=== PATIENT | female | born 1950 | race Caucasian/White ===

== ENCOUNTER 2017-12-09 12:50 | Emergency (ER) | payer MEDICARE ==
--- NOTE | 2017-12-09 13:31 | EDM.PDOC ---
ED HPI GENERAL MEDICAL PROBLEM - General Chief Complaint: Respiratory Problem Stated Complaint: CHEST PAIN Time Seen by Provider: 12/09/17 13:28 Source of Information: Reports: Patient History Limitations: Reports: No Limitations - History of Present Illness INITIAL COMMENTS - FREE TEXT/NARRATIVE: HISTORY AND PHYSICAL: History of present illness: Patient is a 66-year-old female with past medical history of asthma here for cough x 1 week. She states she has a lot of nasal and chest congestion. She is feeling short of breath and has pain in her mid-chest/sternum that is worse with coughing and tender to touch. She has been using her nebulizer which does help. She denies any fevers, chills, nausea, vomiting. Review of systems: As per history of present illness and below otherwise all systems reviewed and negative. Past medical history: As per history of present illness and as reviewed below otherwise noncontributory. Surgical history: As per history of present illness and as reviewed below otherwise noncontributory. Social history: No reported history of drug or alcohol abuse. Family history: As per history of present illness and as reviewed below otherwise noncontributory. Physical exam: General: patient sitting comfortably in no acute distress. HEENT: Atraumatic, normocephalic, pupils reactive, negative for conjunctival pallor or scleral icterus, mucous membranes moist, throat clear, neck supple, nontender, trachea midline. Lungs: Lung sounds are minimally dimished but no rhonchi or rales, breath sounds equal bilaterally, sternum is tender to palpation. Heart: S1S2, regular, negative for clicks, rubs, or JVD. Abdomen: Soft, nondistended, nontender. Negative for masses or hepatosplenomegaly. Negative for costovertebral tenderness. Pelvis: Stable nontender. Genitourinary: Deferred. Rectal: Deferred. Extremities: Atraumatic, negative for cords or calf pain. Neurovascular unremarkable. Neuro: Awake, alert, oriented. Cranial nerves II through XII unremarkable. Cerebellum unremarkable. Motor and sensory unremarkable throughout. Exam nonfocal. Notes: Patient reports improvement after DuoNeb and breath sounds improved. Diagnostics: CBC, CMP, Troponin Chest x-ray Therapeutics: DuoNeb Impression: Asthma exacerbation Acute bronchitis Acute sinusitis Plan: 1. Continue using inhaler/duoneb as needed. Take antibiotic and medrol dosepak as prescribed 2. Follow up with primary care provider 3. Return to ED as needed as discussed Definitive disposition and diagnosis as appropriate pending reevaluation and review of above. Chest Pain Score (Numeric/FACES): 7 - Related Data Allergies Allergy/AdvReac Type Severity Reaction Status Date / Time Penicillins Allergy Hives Verified 12/09/17 12:57 Home Meds: Home Meds Albuterol Sulfate 1 ampule Q4HR 12/09/17 [History] Albuterol [Ventolin HFA] 1 puff Q4HR 12/09/17 [History] Azithromycin [Zithromax] 250 mg PO DAILY #1 dosepk 12/09/17 [Rx] Diltiazem HCl [Cardizem] 1 tab BID 12/09/17 [History] Furosemide 40 mg DAILY 12/09/17 [History] Metoprolol Tartrate 1 tab BID 12/09/17 [History] Nitroglycerin 1 tab PRN 12/09/17 [History] Potassium Chloride [Klor-Con 10] 1 tab DAILY 12/09/17 [History] Rosuvastatin Calcium 20 mg DAILY 12/09/17 [History] methylPREDNISolone [Medrol] 84 mg PO ASDIRECTED #1 tab.ds.pk 12/09/17 [Rx] Past Medical History HEENT History: Reports: Impaired Vision, Retinal Detachment Cardiovascular History: Reports: High Cholesterol, Hypertension, [place] Respiratory History: Reports: Asthma Genitourinary History: Reports: Chronic Renal Insuffiency, Other (See Below) Other Genitourinary History: bladder repair and prolapsed bladder 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: Psychiatric History: Reports: Depression Endocrine/Metabolic History: Reports: Obesity/BMI 30+ Hematologic History: Reports: Anemia - Infectious Disease History Infectious Disease History: Reports: Chicken Pox - Past Surgical History HEENT Surgical History: Reports: Oral Surgery GI Surgical History: Reports: Cholecystectomy Female Surgical History: Reports: Hysterectomy Social & Family History - Family History Family Medical History: Noncontributory - Tobacco Use Smoking Status *Q: Former Smoker Used Tobacco, but Quit: Yes Month/Year Tobacco Last Used: unk - Caffeine Use Caffeine Use: Reports: Coffee, Tea - Recreational Drug Use Recreational Drug Use: No ED ROS GENERAL - Review of Systems Review Of Systems: ROS reveals no pertinent complaints other than HPI. ED EXAM, GENERAL - Physical Exam Exam: See Below (see dictation) Course - Vital Signs Last Recorded V/S: Last Vital Signs Temp 35.9 C 12/09/17 12:54 Pulse 68 12/09/17 12:54 Resp 22 H 12/09/17 12:54 BP 148/72 H 12/09/17 12:54 Pulse Ox 95 12/09/17 12:54 - Orders/Labs/Meds Orders: Active Orders 24 hr Category Date Time Status RT Aerosol Therapy [RC] ASDIRECTED Care 12/09/17 13:39 Active Chest 2V [CR] Stat Exams 12/09/17 13:13 Taken Labs: Laboratory Tests 12/09/17 12/09/17 Range/Units 13:45 13:45 WBC 8.72 (4.0-11.0) K/uL RBC 4.81 (4.30-5.90) M/uL Hgb 12.2 (12.0-16.0) g/dL Hct 38.9 (36.0-46.0) % MCV 80.9 (80.0-98.0) fL MCH 25.4 L (27.0-32.0) pg MCHC 31.4 (31.0-37.0) g/dL RDW Std Deviation 49.8 (28.0-62.0) fl RDW Coeff of Zuly 17 H (11.0-15.0) % Plt Count 297 (150-400) K/uL MPV 9.50 (7.40-12.00) fL Neut % (Auto) 77.7 (48.0-80.0) % Lymph % (Auto) 14.8 L (16.0-40.0) % Dunn % (Auto) 6.2 (0.0-15.0) % Eos % (Auto) 1.0 (0.0-7.0) % Baso % (Auto) 0.3 (0.0-1.5) % Neut # (Auto) 6.8 H (1.4-5.7) K/uL Lymph # (Auto) 1.3 (0.6-2.4) K/uL Dunn # (Auto) 0.5 (0.0-0.8) K/uL Eos # (Auto) 0.1 (0.0-0.7) K/uL Baso # (Auto) 0.0 (0.0-0.1) K/uL Nucleated RBC % 0.0 /100WBC Nucleated RBCs # 0 K/uL Sodium 144 (136-145) mmol/L Potassium 4.6 (3.5-5.1) mmol/L Chloride 108 H (98-107) mmol/L Carbon Dioxide 27.6 (21.0-32.0) mmol/L BUN 19 H (7.0-18.0) mg/dL Creatinine 1.8 H (0.6-1.0) mg/dL Est Cr Clr Drug Dosing 31.85 mL/min Estimated GFR (MDRD) 28.3 ml/min Glucose 99 (74-106) mg/dL Calcium 9.3 (8.5-10.1) mg/dL Total Bilirubin 0.5 (0.2-1.0) mg/dL AST 15 (15-37) IU/L ALT 22 (14-63) IU/L Alkaline Phosphatase 101 (46-116) U/L Troponin I < 0.050 (0.000-0.056) ng/mL Total Protein 7.3 (6.4-8.2) g/dL Albumin 3.7 (3.4-5.0) g/dL Globulin 3.6 H (2.0-3.5) g/dL Albumin/Globulin Ratio 1.0 L (1.3-2.8) Meds: Medications Discontinued Medications Generic Name Dose Route Start Last Admin Trade Name Freq PRN Reason Stop Dose Admin Albuterol/Ipratropium 3 ml 12/09/17 13:39 12/09/17 14:33 Duoneb 3.0-0.5 Mg/3 Ml NEB 12/09/17 13:40 3 ml ONETIME ONE Administration Departure - Departure Time of Disposition: 14:48 Disposition: Home, Self-Care 01 Condition: Good Clinical Impression: Acute bronchitis, Acute sinusitis - Discharge Information Prescriptions: Azithromycin [Zithromax] 250 mg PO DAILY #1 dosepk methylPREDNISolone [Medrol] 84 mg PO ASDIRECTED #1 tab.ds.pk Forms: ED Department Discharge Additional Instructions: The following information is given to patients seen in the emergency department who are being discharged to home. This information is to outline your options for follow-up care. We provide all patients seen in our emergency department with a follow-up referral. The need for follow-up, as well as the timing and circumstances, are variable depending upon the specifics of your emergency department visit. If you don't have a primary care physician on staff, we will provide you with a referral. We always advise you to contact your personal physician following an emergency department visit to inform them of the circumstance of the visit and for follow-up with them and/or the need for any referrals to a consulting specialist. The emergency department will also refer you to a specialist when appropriate. This referral assures that you have the opportunity for follow-up care with a specialist. All of these measure are taken in an effort to provide you with optimal care, which includes your follow-up. Under all circumstances we always encourage you to contact your private physician who remains a resource for coordinating your care. When calling for follow-up care, please make the office aware that this follow-up is from your recent emergency room visit. If for any reason you are refused follow-up, please contact the [facility] Emergency Department at and asked to speak to the emergency department charge nurse. [facility] Primary Care [address] [place] [address] 1. Continue using inhaler/duoneb as needed. Take antibiotic and medrol dosepak as prescribed 2. Follow up with primary care provider 3. Return to ED as needed as discussed - My Orders Last 24 Hours: My Active Orders 12/09/17 13:13 Chest 2V [CR] Stat 12/09/17 13:39 RT Aerosol Therapy [RC] ASDIRECTED - Assessment/Plan Last 24 Hours: My Active Orders 12/09/17 13:13 Chest 2V [CR] Stat 12/09/17 13:39 RT Aerosol Therapy [RC] ASDIRECTED
[2017-12-09] MEDS ORDERED: Albuterol/Ipratropium 3.0-0.5 MG/3 ML Neb Soln NEB ONE (13:39)
[2017-12-09 14:20] LABS: CHLORIDE,CL 108 mmol/L (98-107); SODIUM,NA 144 mmol/L (136-145)
--- NOTE | 2017-12-10 19:12 | CR ---
EXAM DATE: 12/09/17 PATIENT'S AGE: 66 Patient: MERLINE PADILLA Facility: [place], [place] Site . Site : 1950 Study: XRay Chest [id number] 1:28:14 PM Ordering Physician: Doctor Huffman Final Report: INDICATION: Cough and chest pain. COMPARISON: None. FINDINGS: Degenerative osteophytes are noted in the thoracic spine and there is a slight kyphotic deformity of the thoracic spine. Cardiac and mediastinal silhouettes are normal. The pulmonary vasculature is normal. The lungs are free of infiltrate. There are no pleural effusions. IMPRESSION: No active cardiopulmonary disease. Dictated by Sabrina Damon MD @ Dec 09 2017 1:47PM (Electronic Signature) Report Signed by Proxy. KYLE
== END 2017-12-09 14:58 | disposition home or self-care (01) ==
LOC: MW.ED 12:50
DX: J45.901 Unspecified asthma with (acute) exacerbation (principal); J20.9 Acute bronchitis, unspecified; J01.90 Acute sinusitis, unspecified; Z88.0 Allergy status to penicillin; Z79.899 Other long term (current) drug therapy; Z87.891 Personal history of nicotine dependence
CPT/HCPCS: 36415; 71046; 71046-26; 80053; 84484; 85025; 94640; 99282; 99285-25; J7620-GY

== ENCOUNTER 2018-10-04 12:57 | Emergency (ER) | payer MEDICAID, MEDICARE ==
--- NOTE | 2018-10-04 13:11 | EDM.PDOC ---
ED HPI GENERAL MEDICAL PROBLEM - General Chief Complaint: Respiratory Problem Stated Complaint: SHORTNESS OF BREATH Time Seen by Provider: 10/04/18 13:11 Source of Information: Reports: Patient - History of Present Illness INITIAL COMMENTS - FREE TEXT/NARRATIVE: HISTORY AND PHYSICAL: History of present illness: [Patient presents with shortness of breath sensation although she is able to speak in full sentences, she is unchanged from her baseline, she is under the care of Dr. Baxter and . 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 We did do a full workup which has returned essentially all normal ambulatory O2 sats remained 94% Patient has no fever nausea vomiting chills sweats no chest pain headache dizziness palpitation no bowel or urine symptoms no diaphoresis No distress whatsoever ] Review of systems: As per history of present illness and below otherwise all systems reviewed and negative. Past medical history: As per history of present illness and as reviewed below otherwise noncontributory. Surgical history: As per history of present illness and as reviewed below otherwise noncontributory. Social history: No reported history of drug or alcohol abuse. Family history: As per history of present illness and as reviewed below otherwise noncontributory. Physical exam: HEENT: Atraumatic, normocephalic, pupils reactive, negative for conjunctival pallor or scleral icterus, mucous membranes moist, throat clear, neck supple, nontender, trachea midline. Lungs: Clear to auscultation, breath sounds equal bilaterally, chest nontender. Heart: S1S2, regular, negative for clicks, rubs, or JVD. Abdomen: Soft, nondistended, nontender. Negative for masses or hepatosplenomegaly. Negative for costovertebral tenderness. Pelvis: Stable nontender. Genitourinary: Deferred. Rectal: Deferred. Extremities: Atraumatic, negative for cords or calf pain. Neurovascular unremarkable. Neuro: Awake, alert, oriented. Cranial nerves II through XII unremarkable. Cerebellum unremarkable. Motor and sensory unremarkable throughout. Exam nonfocal. Diagnostics: [CBC CMP UA troponin d-dimer INR Chest 1 view EKG ] Therapeutics: [Continue current medications Follow-up for PFTs] Impression: [ short of breath ] Chronic history of baseline Medical screening exam Definitive disposition and diagnosis as appropriate pending reevaluation and review of above. - Related Data Allergies Allergy/AdvReac Type Severity Reaction Status Date / Time Penicillins Allergy Hives Verified 10/04/18 13:02 Home Meds: Home Meds Albuterol Sulfate 1 ampule Q4HR 12/09/17 [History] Albuterol [Ventolin HFA] 1 puff Q4HR 12/09/17 [History] Diltiazem HCl [Cardizem] 1 tab BID 12/09/17 [History] Doxycycline Hyclate 100 mg PO BID 7 Days #14 capsule 12/09/17 [Rx] Furosemide 40 mg DAILY 12/09/17 [History] Metoprolol Tartrate 1 tab BID 12/09/17 [History] Nitroglycerin 1 tab SL ASDIRECTED PRN 12/09/17 [History] Potassium Chloride [Klor-Con 10] 1 tab DAILY 12/09/17 [History] Rosuvastatin Calcium 20 mg DAILY 12/09/17 [History] methylPREDNISolone [Medrol] 84 mg PO ASDIRECTED #1 tab.ds.pk 12/09/17 [Rx] Doxycycline [Vibramycin] 100 mg PO BID 7 Days #14 cap 02/01/18 [Rx] Meclizine [Antivert] 25 mg PO Q6H PRN #15 tab 02/01/18 [Rx] Triamcinolone Acetonide [24 Hour Nasal Allergy] 16.9 ml NS BID #1 bottle [Rx] Past Medical History - Past Health History Medical/Surgical History: Denies Medical/Surgical History HEENT History: Reports: Impaired Vision, Retinal Detachment Cardiovascular History: Reports: High Cholesterol, Hypertension, [place] Respiratory History: Reports: Asthma Genitourinary History: Reports: Chronic Renal Insuffiency, Other (See Below) Other Genitourinary History: bladder repair and prolapsed bladder. Ovarian cyst. 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: Psychiatric History: Reports: Depression Endocrine/Metabolic History: Reports: Obesity/BMI 30+ Hematologic History: Reports: Anemia - Infectious Disease History Infectious Disease History: Reports: Chicken Pox - Past Surgical History HEENT Surgical History: Reports: Oral Surgery GI Surgical History: Reports: Cholecystectomy Female Surgical History: Reports: Hysterectomy Social & Family History - Family History Family Medical History: Noncontributory - Caffeine Use Caffeine Use: Reports: Coffee ED ROS GENERAL - Review of Systems Review Of Systems: See Below ED EXAM, GENERAL - Physical Exam Exam: See Below Course - Vital Signs Last Recorded V/S: Last Vital Signs Temp 96.7 F 10/04/18 13:05 Pulse 61 10/04/18 13:05 Resp 18 10/04/18 13:05 BP 132/81 10/04/18 13:05 Pulse Ox 98 10/04/18 13:05 - Orders/Labs/Meds Orders: Active Orders 24 hr Category Date Time Status EKG Documentation Completion [RC] STAT Care 10/04/18 13:10 Active RT Aerosol Therapy [RC] ASDIRECTED Care 10/04/18 13:28 Active Labs: Laboratory Tests 10/04/18 10/04/18 10/04/18 Range/Units 13:20 13:20 13:20 WBC 15.65 H (4.0-11.0) K/uL RBC 4.84 (4.30-5.90) M/uL Hgb 12.4 (12.0-16.0) g/dL Hct 41.3 (36.0-46.0) % MCV 85.3 (80.0-98.0) fL MCH 25.6 L (27.0-32.0) pg MCHC 30.0 L (31.0-37.0) g/dL RDW Std Deviation 51.4 (28.0-62.0) fl RDW Coeff of Zuly 17 H (11.0-15.0) % Plt Count 321 (150-400) K/uL MPV 9.30 (7.40-12.00) fL Neut % (Auto) 88.7 H (48.0-80.0) % Lymph % (Auto) 7.3 L (16.0-40.0) % Owen % (Auto) 2.9 (0.0-15.0) % Eos % (Auto) 1.0 (0.0-7.0) % Baso % (Auto) 0.1 (0.0-1.5) % Neut # (Auto) 13.9 H (1.4-5.7) K/uL Lymph # (Auto) 1.2 (0.6-2.4) K/uL Owen # (Auto) 0.5 (0.0-0.8) K/uL Eos # (Auto) 0.2 (0.0-0.7) K/uL Baso # (Auto) 0.0 (0.0-0.1) K/uL Nucleated RBC % 0.0 /100WBC Nucleated RBCs # 0 K/uL INR 1.04 D-Dimer, Quantitative 0.21 (0.0-0.50) mg/L FEU Sodium 141 (136-145) mmol/L Potassium 3.7 (3.5-5.1) mmol/L Chloride 106 (98-107) mmol/L Carbon Dioxide 27.5 (21.0-32.0) mmol/L BUN 23 H (7.0-18.0) mg/dL Creatinine 1.8 H (0.6-1.0) mg/dL Est Cr Clr Drug Dosing 31.43 mL/min Estimated GFR (MDRD) 28.2 ml/min Glucose 98 (74-106) mg/dL Calcium 8.8 (8.5-10.1) mg/dL Total Bilirubin 0.5 (0.2-1.0) mg/dL AST 10 L (15-37) IU/L ALT 25 (14-63) IU/L Alkaline Phosphatase 75 (46-116) U/L Troponin I < 0.050 (0.000-0.056) ng/mL B-Natriuretic Peptide (<100) PG/ML Total Protein 6.9 (6.4-8.2) g/dL Albumin 3.6 (3.4-5.0) g/dL Globulin 3.3 (2.6-4.0) g/dL Albumin/Globulin Ratio 1.1 (0.9-1.6) Urine Color Urine Appearance Urine pH (5.0-8.0) Ur Specific [place] (1.001-1.035) Urine Protein (NEGATIVE) mg/dL Urine Glucose (UA) (NEGATIVE) mg/dL Urine Ketones (NEGATIVE) mg/dL Urine Occult Blood (NEGATIVE) Urine Nitrite (NEGATIVE) Urine Bilirubin (NEGATIVE) Urine Urobilinogen (<2.0) EU/dL Ur Leukocyte Esterase (NEGATIVE) Urine RBC (0-2/HPF) Urine WBC (0-5/HPF) Ur Epithelial Cells (NONE-FEW) Urine Bacteria (NEGATIVE) 10/04/18 10/04/18 Range/Units 13:20 13:37 WBC (4.0-11.0) K/uL RBC (4.30-5.90) M/uL Hgb (12.0-16.0) g/dL Hct (36.0-46.0) % MCV (80.0-98.0) fL MCH (27.0-32.0) pg MCHC (31.0-37.0) g/dL RDW Std Deviation (28.0-62.0) fl RDW Coeff of Zuly (11.0-15.0) % Plt Count (150-400) K/uL MPV (7.40-12.00) fL Neut % (Auto) (48.0-80.0) % Lymph % (Auto) (16.0-40.0) % Owen % (Auto) (0.0-15.0) % Eos % (Auto) (0.0-7.0) % Baso % (Auto) (0.0-1.5) % Neut # (Auto) (1.4-5.7) K/uL Lymph # (Auto) (0.6-2.4) K/uL Owen # (Auto) (0.0-0.8) K/uL Eos # (Auto) (0.0-0.7) K/uL Baso # (Auto) (0.0-0.1) K/uL Nucleated RBC % /100WBC Nucleated RBCs # K/uL INR D-Dimer, Quantitative (0.0-0.50) mg/L FEU Sodium (136-145) mmol/L Potassium (3.5-5.1) mmol/L Chloride (98-107) mmol/L Carbon Dioxide (21.0-32.0) mmol/L BUN (7.0-18.0) mg/dL Creatinine (0.6-1.0) mg/dL Est Cr Clr Drug Dosing mL/min Estimated GFR (MDRD) ml/min Glucose (74-106) mg/dL Calcium (8.5-10.1) mg/dL Total Bilirubin (0.2-1.0) mg/dL AST (15-37) IU/L ALT (14-63) IU/L Alkaline Phosphatase (46-116) U/L Troponin I (0.000-0.056) ng/mL B-Natriuretic Peptide 89 (<100) PG/ML Total Protein (6.4-8.2) g/dL Albumin (3.4-5.0) g/dL Globulin (2.6-4.0) g/dL Albumin/Globulin Ratio (0.9-1.6) Urine Color YELLOW Urine Appearance CLEAR Urine pH 6.0 (5.0-8.0) Ur Specific [place] 1.010 (1.001-1.035) Urine Protein NEGATIVE (NEGATIVE) mg/dL Urine Glucose (UA) NEGATIVE (NEGATIVE) mg/dL Urine Ketones NEGATIVE (NEGATIVE) mg/dL Urine Occult Blood TRACE-INTACT H (NEGATIVE) Urine Nitrite NEGATIVE (NEGATIVE) Urine Bilirubin NEGATIVE (NEGATIVE) Urine Urobilinogen 0.2 (<2.0) EU/dL Ur Leukocyte Esterase NEGATIVE (NEGATIVE) Urine RBC NONE SEEN (0-2/HPF) Urine WBC NONE SEEN (0-5/HPF) Ur Epithelial Cells NOT SEEN (NONE-FEW) Urine Bacteria RARE (NEGATIVE) Meds: Medications Discontinued Medications Generic Name Dose Route Start Last Admin Trade Name Freq PRN Reason Stop Dose Admin Albuterol/Ipratropium 3 ml 10/04/18 13:28 10/04/18 13:43 Duoneb 3.0-0.5 Mg/3 Ml NEB 10/04/18 13:29 3 ml ONETIME ONE Administration Departure - Departure Time of Disposition: 14:48 Disposition: Home, Self-Care 01 Condition: Good Clinical Impression: Encounter for medical screening examination - Discharge Information Referrals: PCP,Unknown [Primary Care Provider] - Forms: ED Department Discharge Additional Instructions: Continue current medication regimen as directed Return if symptoms persist or worsen or if new concerning symptoms develop Follow-up with Dr. james lackey for pulmonary function testing as scheduled Follow-up with primary care as needed and/or as scheduled The following information is given to patients seen in the emergency department who are being discharged to home. This information is to outline your options for follow-up care. We provide all patients seen in our emergency department with a follow-up referral. The need for follow-up, as well as the timing and circumstances, are variable depending upon the specifics of your emergency department visit. If you don't have a primary care physician on staff, we will provide you with a referral. We always advise you to contact your personal physician following an emergency department visit to inform them of the circumstance of the visit and for follow-up with them and/or the need for any referrals to a consulting specialist. The emergency department will also refer you to a specialist when appropriate. This referral assures that you have the opportunity for follow-up care with a specialist. All of these measure are taken in an effort to provide you with optimal care, which includes your follow-up. Under all circumstances we always encourage you to contact your private physician who remains a resource for coordinating your care. When calling for follow-up care, please make the office aware that this follow-up is from your recent emergency room visit. If for any reason you are refused follow-up, please contact the [facility] emergency department at and asked to speak to the emergency department charge nurse. - My Orders Last 24 Hours: My Active Orders 10/04/18 13:10 EKG Documentation Completion [RC] STAT 10/04/18 13:28 RT Aerosol Therapy [RC] ASDIRECTED - Assessment/Plan Last 24 Hours: My Active Orders 10/04/18 13:10 EKG Documentation Completion [RC] STAT 10/04/18 13:28 RT Aerosol Therapy [RC] ASDIRECTED
[2018-10-04] MEDS ORDERED: Albuterol/Ipratropium 3.0-0.5 MG/3 ML Neb Soln NEB ONE (13:28)
[2018-10-04 13:58] LABS: CHLORIDE,CL 106 mmol/L (98-107); SODIUM,NA 141 mmol/L (136-145)
--- NOTE | 2018-10-04 14:07 | CR ---
EXAMINATION: Portable chest radiograph. HISTORY: Shortness breath. FINDINGS: The trachea is midline. The cardiomediastinal silhouette is within normal limits. No pulmonary infiltrates, effusions or pneumothorax. Osseous structures appear unremarkable. IMPRESSION: No acute cardiopulmonary process.
== END 2018-10-04 15:03 | disposition home or self-care (01) ==
LOC: MW.ED 12:57
DX: R06.02 Shortness of breath (principal)
CPT/HCPCS: 36415; 71045; 71045-26; 80053; 81001; 83880; 84484; 85025; 85379; 85610; 93005; 94640; 99284; 99285-25; J7620-GY

== ENCOUNTER 2018-11-20 14:39 | Emergency (ER) | payer MEDICAID, MEDICARE ==
[2018-11-20] MEDS ORDERED: Sodium Chloride 0.9% 1,000 ML IV ONE (14:44)
--- NOTE | 2018-11-20 14:45 | EDM.PDOC ---
ED HPI GENERAL MEDICAL PROBLEM - General Chief Complaint: Abdominal Pain Stated Complaint: ABD PAIN Time Seen by Provider: 11/20/18 14:43 Source of Information: Reports: Patient History Limitations: Reports: No Limitations - History of Present Illness INITIAL COMMENTS - FREE TEXT/NARRATIVE: HISTORY AND PHYSICAL: History of present illness: Patient is a 67-year-old female who presents to the emergency room today with complaints of epigastric pain, nausea, decreased appetite and bilateral shoulder pain. She states symptoms have been ongoing over the past 3 days. Has a sensation of generalized upper abdominal bloating and tenderness with palpation. Patient denies any fever, chills, headache, change in vision, syncope or near syncope. Denies any chest pain, back pain, shortness of breath or cough. Denies any vomiting, diarrhea, constipation or dysuria. Has not noted any blood in urine or stool. Past medical history of cholecystectomy, GERD, fibromyalgia, kidney disease, hypertension, coronary artery disease with OR. Review of systems: As per history of present illness and below otherwise all systems reviewed and negative. Past medical history: As per history of present illness and as reviewed below otherwise noncontributory. Surgical history: As per history of present illness and as reviewed below otherwise noncontributory. Social history: See social history for further information Family history: As per history of present illness and as reviewed below otherwise noncontributory. Physical exam: General: Well-developed and well-nourished 67-year-old female. Alert and oriented. Nontoxic appearing and in no acute distress. Vital signs are stable and have been reviewed by me. HEENT: Atraumatic, normocephalic, pupils equal and reactive bilaterally, negative for conjunctival pallor or scleral icterus, mucous membranes moist, trachea midline. No drooling or trismus noted. No meningeal signs. No hot potato voice noted. Lungs: Clear to auscultation, breath sounds equal bilaterally, chest nontender. Heart: S1S2, regular rate and rhythm without overt murmur Abdomen: Soft, nondistended, generalized tenderness throughout (greater in the epigastric area). Negative for masses or hepatosplenomegaly. Negative for costovertebral tenderness. Pelvis: Stable nontender. Skin: Intact, warm, dry. No lesions or rashes noted. Extremities: Atraumatic, moves all extremities per self without difficulty or deficits, negative for cords or calf pain. Neurovascular unremarkable. Neuro: Awake, alert, oriented. Cranial nerves II through XII unremarkable. Cerebellum unremarkable. Motor and sensory unremarkable throughout. Exam nonfocal. Notes: Patient has known kidney disease; not currently on dialysis. CT shows a simple 5.5 cm left ovarian cyst without evidence of rupture. Otherwise unremarkable exam. Lab work is unremarkable. Patient was able to void but did not provide a sample for the intended UA. All findings were shared with the patient. Encouraged her to take an [id number] Zantac or Pepcid daily. Needs to follow-up with the general surgeon. Supportive care measures were reviewed and discussed. Voices understanding and is agreeable to plan of care. Denies any further questions or concerns at this time. Diagnostics: CBC, CMP, UA, lipase, EKG, CT abd/pelvis Therapeutics: IV fluid, Protonix, Zofran, GI cocktail Prescription: Tramadol Lansoprazole Zofran Impression: Epigastric Pain Ovarian Cyst Plan: 1. Mckenzie diet over the next 24-48 hours. Increase your oral fluids to prevent dehydration. 2. Please take the medications as directed. 3. Follow-up with the general surgeon is you may need further imaging/scoping. Return to the ED as needed and as discussed. Definitive disposition and diagnosis as appropriate pending reevaluation and review of above. Duration: Day(s): Location: Reports: Abdomen epigastric pain Pain Score (Numeric/FACES): 9 - Related Data Allergies Allergy/AdvReac Type Severity Reaction Status Date / Time Penicillins Allergy Hives Verified 10/04/18 13:02 Home Meds: Home Meds Albuterol Sulfate 1 ampule Q4HR 12/09/17 [History] Albuterol [Ventolin HFA] 1 puff Q4HR 12/09/17 [History] Diltiazem HCl [Cardizem] 1 tab BID 12/09/17 [History] Furosemide 40 mg DAILY 12/09/17 [History] Metoprolol Tartrate 1 tab BID 12/09/17 [History] Nitroglycerin 1 tab SL ASDIRECTED PRN 12/09/17 [History] Potassium Chloride [Klor-Con 10] 1 tab DAILY 12/09/17 [History] Rosuvastatin Calcium 20 mg DAILY 12/09/17 [History] Allopurinol [Zyloprim] 100 mg PO DAILY 11/20/18 [History] Past Medical History - Past Health History Medical/Surgical History: Denies Medical/Surgical History HEENT History: Reports: Impaired Vision, Retinal Detachment Cardiovascular History: Reports: High Cholesterol, Hypertension, [place] Respiratory History: Reports: Asthma Genitourinary History: Reports: Chronic Renal Insuffiency, Other (See Below) Other Genitourinary History: bladder repair and prolapsed bladder. Ovarian cyst. 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: Psychiatric History: Reports: Depression Endocrine/Metabolic History: Reports: Obesity/BMI 30+ Hematologic History: Reports: Anemia - Infectious Disease History Infectious Disease History: Reports: Chicken Pox - Past Surgical History HEENT Surgical History: Reports: Oral Surgery GI Surgical History: Reports: Cholecystectomy Female Surgical History: Reports: Hysterectomy Social & Family History - Family History Family Medical History: Noncontributory - Caffeine Use Caffeine Use: Reports: Coffee ED ROS GENERAL - Review of Systems Review Of Systems: ROS reveals no pertinent complaints other than HPI. ED EXAM, GI/ABD - Physical Exam Exam: See Below (See dictation) Course - Vital Signs Last Recorded V/S: Last Vital Signs Temp 97.3 F 11/20/18 14:46 Pulse 60 11/20/18 14:46 Resp 18 11/20/18 14:46 BP 150/68 H 11/20/18 14:46 Pulse Ox 97 11/20/18 14:46 - Orders/Labs/Meds Orders: Active Orders 24 hr Category Date Time Status EKG Documentation Completion [RC] STAT Care 11/20/18 14:54 Active RT Aerosol Therapy [RC] ASDIRECTED Care 11/20/18 16:15 Active UA RFX FRANCESCA AND CULT IF INDIC [URIN] Stat Lab 11/20/18 16:25 Ordered Sodium Chloride 0.9% [Normal Saline] 1,000 ml Med 11/20/18 14:44 Active IV STAT Medication Orders Sodium Chloride (Normal Saline) 1,000 mls @ 100 mls/hr IV STAT ONE Stop: 11/21/18 00:43 Last Admin: 11/20/18 15:12 Dose: 100 mls/hr Labs: Laboratory Tests 11/20/18 11/20/18 11/20/18 Range/Units 15:10 15:10 15:10 WBC 8.96 (4.0-11.0) K/uL RBC 4.57 (4.30-5.90) M/uL Hgb 12.1 (12.0-16.0) g/dL Hct 39.2 (36.0-46.0) % MCV 85.8 (80.0-98.0) fL MCH 26.5 L (27.0-32.0) pg MCHC 30.9 L (31.0-37.0) g/dL RDW Std Deviation 51.6 (28.0-62.0) fl RDW Coeff of Zuly 17 H (11.0-15.0) % Plt Count 293 (150-400) K/uL MPV 9.10 (7.40-12.00) fL Neut % (Auto) 71.3 (48.0-80.0) % Lymph % (Auto) 21.0 (16.0-40.0) % [place] % (Auto) 5.7 (0.0-15.0) % Eos % (Auto) 1.7 (0.0-7.0) % Baso % (Auto) 0.3 (0.0-1.5) % Neut # (Auto) 6.4 H (1.4-5.7) K/uL Lymph # (Auto) 1.9 (0.6-2.4) K/uL [place] # (Auto) 0.5 (0.0-0.8) K/uL Eos # (Auto) 0.2 (0.0-0.7) K/uL Baso # (Auto) 0.0 (0.0-0.1) K/uL Nucleated RBC % 0.0 /100WBC Nucleated RBCs # 0 K/uL Sodium 143 (136-145) mmol/L Potassium 4.5 (3.5-5.1) mmol/L Chloride 107 (98-107) mmol/L Carbon Dioxide 28.0 (21.0-32.0) mmol/L BUN 22 H (7.0-18.0) mg/dL Creatinine 2.0 H (0.6-1.0) mg/dL Est Cr Clr Drug Dosing 28.29 mL/min Estimated GFR (MDRD) 25.0 ml/min Glucose 95 (74-106) mg/dL Calcium 9.5 (8.5-10.1) mg/dL Total Bilirubin 0.5 (0.2-1.0) mg/dL AST 13 L (15-37) IU/L ALT 24 (14-63) IU/L Alkaline Phosphatase 95 (46-116) U/L Troponin I < 0.050 (0.000-0.056) ng/mL Total Protein 7.3 (6.4-8.2) g/dL Albumin 3.7 (3.4-5.0) g/dL Globulin 3.6 (2.6-4.0) g/dL Albumin/Globulin Ratio 1.0 (0.9-1.6) Lipase 123 (73-393) U/L Meds: Medications Generic Name Dose Route Start Last Admin Trade Name Freq PRN Reason Stop Dose Admin Sodium Chloride 1,000 mls @ 100 mls/hr 11/20/18 14:44 11/20/18 15:12 Normal Saline IV 11/21/18 00:43 100 mls/hr STAT ONE Administration Discontinued Medications Generic Name Dose Route Start Last Admin Trade Name Freq PRN Reason Stop Dose Admin Albuterol/Ipratropium 3 ml 11/20/18 16:14 11/20/18 16:20 Duoneb 3.0-0.5 Mg/3 Ml NEB 11/20/18 16:15 3 ml ONETIME ONE Administration Al Hydroxide/Mg Hydroxide 15 0 ml 11/20/18 15:39 11/20/18 15:52 ml/ Metoclopramide HCl 5 mg/ PO 11/20/18 15:40 25 each Lidocaine HCl 5 ml ONETIME ONE Administration Sterile Water Confirm 11/20/18 15:05 Sterile Water For Injection Administered 11/20/18 15:06 Dose 20 mls @ as directed .ROUTE .STK-MED ONE Ondansetron HCl 4 mg 11/20/18 14:57 11/20/18 15:13 Zofran IVPUSH 11/20/18 14:58 4 mg ONETIME ONE Administration Pantoprazole Sodium 80 mg 11/20/18 14:57 11/20/18 15:13 Protonix Iv IVPUSH 11/20/18 14:58 80 mg NOW STA Administration Departure - Departure Time of Disposition: 16:43 Disposition: Home, Self-Care 01 Clinical Impression: Epigastric pain Ovarian cyst Qualifiers: Laterality: left Qualified Code(s): N83.202 - Unspecified ovarian cyst, left side - Discharge Information Instructions: Abdominal Pain, Adult, Zyed-df-[id number] Referrals: PCP,None [Primary Care Provider] - Forms: ED Department Discharge Additional Instructions: The following information is given to patients seen in the emergency department who are being discharged to home. This information is to outline your options for follow-up care. We provide all patients seen in our emergency department with a follow-up referral. The need for follow-up, as well as the timing and circumstances, are variable depending upon the specifics of your emergency department visit. If you don't have a primary care physician on staff, we will provide you with a referral. We always advise you to contact your personal physician following an emergency department visit to inform them of the circumstance of the visit and for follow-up with them and/or the need for any referrals to a consulting specialist. The emergency department will also refer you to a specialist when appropriate. This referral assures that you have the opportunity for follow-up care with a specialist. All of these measure are taken in an effort to provide you with optimal care, which includes your follow-up. Under all circumstances we always encourage you to contact your private physician who remains a resource for coordinating your care. When calling for follow-up care, please make the office aware that this follow-up is from your recent emergency room visit. If for any reason you are refused follow-up, please contact the [facility] Emergency Department at and asked to speak to the emergency department charge nurse. [facility] [address] [place] [id number] [facility] Specialty Care - General Surgery Professional Building [address] [place] [address], [address] [place] [address] 1. Mckenzie diet over the next 24-48 hours. Increase your oral fluids to prevent dehydration. 2. Please take the medications as directed. 3. Follow-up with the general surgeon is you may need further imaging/scoping. Return to the ED as needed and as discussed. - My Orders Last 24 Hours: My Active Orders 11/20/18 14:44 Sodium Chloride 0.9% [Normal Saline] 1,000 ml IV STAT 11/20/18 14:54 EKG Documentation Completion [RC] STAT 11/20/18 16:25 UA RFX FRANCESCA AND CULT IF INDIC [URIN] Stat - Assessment/Plan Last 24 Hours: My Active Orders 11/20/18 14:44 Sodium Chloride 0.9% [Normal Saline] 1,000 ml IV STAT 11/20/18 14:54 EKG Documentation Completion [RC] STAT 11/20/18 16:25 UA RFX FRANCESCA AND CULT IF INDIC [URIN] Stat
[2018-11-20] MEDS ORDERED: Pantoprazole 40 MG Vial IVPUSH STA (14:57)
[2018-11-20] MEDS ORDERED: Ondansetron 4 MG/2 ML SDV IVPUSH ONE (14:57)
[2018-11-20] MEDS ORDERED: Water For Injection, Sterile 20 ML ONE (15:05)
[2018-11-20 15:36] LABS: POTASSIUM,K 4.5 mmol/L (3.5-5.1)
[2018-11-20] MEDS ORDERED: Alum Hydrox/Mag Hydrox/Simeth 15 ML, Metoclopramide 5 MG, Lidocaine 2% 5 ML PO ONE ×3 (15:39)
[2018-11-20] MEDS ORDERED: Albuterol/Ipratropium 3.0-0.5 MG/3 ML Neb Soln NEB ONE (16:14)
--- NOTE | 2018-11-20 16:32 | CT ---
INDICATION: Epigastric abdomen pain. TECHNIQUE: CT abdomen and pelvis without contrast. COMPARISON: 01/30/2018. FINDINGS: Lower chest: Unremarkable. Liver: Normal in size and attenuation. No masses. Gallbladder and bile ducts: Status post cholecystectomy. Pancreas: Unremarkable. No mass or inflammation. Spleen: Normal in size. No masses. Adrenal glands: Normal in size. No nodules. Kidneys: Left kidney is severely atrophic and nonfunctional. Unremarkable right kidney. GI tract: Unremarkable. Normal in caliber. No sign of mass or inflammation. Normal appendix. Vasculature: Unremarkable. Lymph nodes: No lymphadenopathy. Abdominal wall/Omentum/Peritoneum: Unremarkable. No sign of mass or infiltration. No free air or significant free fluid. Pelvis: A 5.5 cm simple cyst is in the left ovary. Right ovary is not visualized. Uterus is absent. Bones: Unremarkable for age. IMPRESSION: 1. Simple 5.5 cm left ovarian cyst without evidence of rupture. 2. Otherwise unremarkable exam. No other acute or specific findings to explain epigastric abdomen pain. Please note that all CT scans at this facility use dose modulation, iterative reconstruction, and/or weight-based dosing when appropriate to reduce radiation dose to as low as reasonably achievable. Dictated by Chiki Nails MD @ Nov 20 2018 4:21PM Signed by Dr. Chiki Nails @ Nov 20 2018 4:30PM
== END 2018-11-20 16:59 | disposition home or self-care (01) ==
LOC: MW.ED 14:39
DX: N83.202 Unspecified ovarian cyst, left side (principal); R10.13 Epigastric pain; E78.00 Pure hypercholesterolemia, unspecified; I25.2 Old myocardial infarction; J45.909 Unspecified asthma, uncomplicated; I12.9 Hypertensive chronic kidney disease with stage 1 through stage 4 chronic kidney disease, or unspecified chronic kidney disease; N18.9 Chronic kidney disease, unspecified; F32.9 Major depressive disorder, single episode, unspecified; Z88.0 Allergy status to penicillin; Z79.899 Other long term (current) drug therapy
CPT/HCPCS: 36415; 74176; 80053; 83690; 84484; 85025; 93005; 94640; 96361; 96374; 96375; 99284; A9270; C9113; J2405; J7040; J7620-GY

== ENCOUNTER 2018-12-09 07:48 | Day surgery (SDC) | payer MEDICARE ==
[~2018-12-09 07:48] MED LIST: Lactated Ringers 1,000 ML IV SCH; Lidocaine 2% 5 ML SDV ONE; Propofol 200 MG/20 ML SDV ONE; fentaNYL 100 MCG/2 ML SDV ONE
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
[2018-12-09] MEDS ORDERED: Ketamine 500 mg/10 ML MDV ONE (08:36)
[2018-12-09] MEDS ORDERED: Midazolam 1 MG/ML 2 ML SDV ONE (08:36)
[2018-12-09] MEDS ORDERED: Albuterol/Ipratropium 3.0-0.5 MG/3 ML Neb Soln NEB ONE (09:22)
[2018-12-09] MEDS ORDERED: Albuterol/Ipratropium 3.0-0.5 MG/3 ML Neb Soln ONE (09:31)
--- NOTE | 2018-12-09 09:50 | PCM.OPNOTE ---
- General Post-Op/Procedure Note Date of Surgery/Procedure: 12/09/18 Operative Procedure(s): Esophagogastroduodenoscopy with gastric and esophageal biopsy. Colonoscopy. Pre Op Diagnosis: Progressive abdominal bloating. Anemia. Intermittent rectal bleeding. Post-Op Diagnosis: Mild to moderate chronic gastritis and esophagitis. Hiatal hernia. No evidence of colonic neoplasia. Anesthesia Technique: MAC (ASA III) Primary Surgeon: Kannan Colon Condition: Good Free Text/Narrative:: DICTATION [id number] CPT CODE [id number]
[2018-12-09] MEDS ORDERED: Benzocaine/Cetylpyridinium/Menthol Lozenge MUCMEM PRN (09:59)
[2018-12-09] MEDS ORDERED: Lactated Ringers 1,000 ML IV SCH (10:00)
--- NOTE | 2018-12-09 10:14 | PCM48HPAN ---
Post Anesthesia Note - EVALUATION WITHIN 48HRS OF ANESTHETIC Vital Signs in Normal Range: Yes Patient Participated in Evaluation: Yes Respiratory Function Stable: Yes Airway Patent: Yes Cardiovascular Function Stable: Yes Hydration Status Stable: Yes Pain Control Satisfactory: Yes Nausea and Vomiting Control Satisfactory: Yes Mental Status Recovered: Yes Vital Signs: Last Vital Signs Temp 98.4 F 12/09/18 08:15 Pulse 60 12/09/18 10:06 Resp 18 12/09/18 10:06 BP 120/56 L 12/09/18 10:06 Pulse Ox 95 12/09/18 10:06
--- NOTE | 2018-12-09 10:14 | PCM.POSTAN ---
POST ANESTHESIA ASSESSMENT - MENTAL STATUS Mental Status: Alert, Oriented - VITAL SIGNS Vital Signs: Last Vital Signs Temp 98.4 F 12/09/18 08:15 Pulse 60 12/09/18 10:06 Resp 18 12/09/18 10:06 BP 120/56 L 12/09/18 10:06 Pulse Ox 95 12/09/18 10:06 - RESPIRATORY Respiratory Status: Respiratory Rate WNL, Airway Patent, O2 Saturation Stable - CARDIOVASCULAR CV Status: Pulse Rate WNL, Blood Pressure Stable - GASTROINTESTINAL GI Status: No Symptoms - POST OP HYDRATION Hydration Status: Adequate & Stable
--- NOTE | 2018-12-09 10:35 | OR ---
SURGEON: Kannan Colon M.D. DATE OF PROCEDURE: 12/09/2018 OPERATION PERFORMED: Colonoscopy. PRIMARY SURGEON: Kannan Colon MD. ANESTHESIA: MAC. ASA CLASSIFICATION: III. PREOPERATIVE DIAGNOSIS: Rectal bleeding. POSTOPERATIVE DIAGNOSIS: No evidence of neoplasia. DESCRIPTION OF PROCEDURE: With the patient maintained in the left lateral decubitus position, the colonoscope was inserted into the rectum and advanced with minimal difficulty to the cecum. The colonoscope was retroflexed to visualize the ascending colon from below, then straightened and slowly withdrawn. The cecum, ascending colon, hepatic flexure, transverse colon, splenic flexure, descending colon, sigmoid colon, and rectum were very well visualized. No tumors or polyps were encountered. There was no evidence of angiodysplasia. No diverticula were noted. No significant hemorrhoids were identified when the colonoscope was withdrawn to the rectum. After retroflexing the scope in the rectum, the colonoscope was straightened and the rectum aspirated. The colonoscope was then removed with the patient having tolerated the procedure well. She was taken to recovery room in stable condition. JAQUELIN HOLDER /[id number]
--- NOTE | 2018-12-09 10:38 | OR ---
SURGEON: Kannan Colon M.D. DATE OF PROCEDURE: 12/09/2018 OPERATION PERFORMED: Esophagogastroduodenoscopy with biopsy. PRIMARY SURGEON: Kannan Colon MD. ANESTHESIA: MAC. ASA CLASSIFICATION: III. PREOPERATIVE DIAGNOSIS: Persistent abdominal bloating. POSTOPERATIVE DIAGNOSES: 1. Mild to moderate chronic gastritis. 2. Large hiatal hernia. DESCRIPTION OF PROCEDURE: The patient was taken to the endoscopy room and positioned on the endoscopy table in the left lateral decubitus position. Time-out was called for appropriate identification of the patient and procedure. Monitored anesthesia care was provided. The bite block was placed between the patient's teeth. The gastroscope was inserted through the bite block into the oropharynx and advanced with minimal difficulty through the esophagus and stomach into the duodenum. Examination was carried out in a retrograde fashion. The duodenum shows no acute inflammatory changes or ulcerations. The stomach does show mild to moderate gastritis. Antral biopsies were obtained to look for the presence of Helicobacter pylori. The gastroscope was retroflexed to visualize the proximal stomach. No acute lesions were noted proximally and no tumors were seen. The patient does have a large hiatal hernia, which was best seen in a forward viewing fashion. The gastroscope was then straightened and slowly withdrawn, aspirating the stomach. Again, the hiatal hernia was easily identified and quite large. The GE junction does show some mild to moderate inflammatory changes and separate biopsies of the distal esophagus were obtained. The esophagus itself demonstrates good contractility. No mid or proximal lesions were identified. Vocal cords were not visualized. Gastroscope was then removed with the patient having tolerated the procedure well. Following colonoscopy, she was taken to recovery room in stable condition. JAQUELIN HOLDER /[id number]
== END 2018-12-09 10:35 | disposition home or self-care (01) ==
LOC: MW.SDS 07:48
PROVIDERS: ATTEND Surgery
DX: K62.5 Hemorrhage of anus and rectum (principal); K29.50 Unspecified chronic gastritis without bleeding; K44.9 Diaphragmatic hernia without obstruction or gangrene; M19.90 Unspecified osteoarthritis, unspecified site; J45.909 Unspecified asthma, uncomplicated; I12.9 Hypertensive chronic kidney disease with stage 1 through stage 4 chronic kidney disease, or unspecified chronic kidney disease; N18.3 Chronic kidney disease, stage 3 (moderate); M51.36 Other intervertebral disc degeneration, lumbar region; E78.5 Hyperlipidemia, unspecified; E66.9 Obesity, unspecified; Z68.39 Body mass index [BMI] 39.0-39.9, adult; Z88.0 Allergy status to penicillin; Z79.899 Other long term (current) drug therapy; Z79.82 Long term (current) use of aspirin; Z87.891 Personal history of nicotine dependence
CPT/HCPCS: 43239; 45378; 88305; 88312; 94640; A9270; J2001; J2250; J2704; J3010; J7120; 00813; J7620-GY

== ENCOUNTER 2018-12-10 00:44 | Emergency (ER) | payer MEDICARE ==
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
== END 2018-12-10 01:00 | disposition home or self-care (01) ==
LOC: MW.ED 00:44
DX: Z00.00 Encounter for general adult medical examination without abnormal findings (principal); I25.2 Old myocardial infarction; I12.9 Hypertensive chronic kidney disease with stage 1 through stage 4 chronic kidney disease, or unspecified chronic kidney disease; N18.3 Chronic kidney disease, stage 3 (moderate); E66.9 Obesity, unspecified; Z88.0 Allergy status to penicillin; Z79.899 Other long term (current) drug therapy; Z98.890 Other specified postprocedural states; Z90.49 Acquired absence of other specified parts of digestive tract; Z90.710 Acquired absence of both cervix and uterus; Z86.2 Personal history of diseases of the blood and blood-forming organs and certain disorders involving the immune mechanism
CPT/HCPCS: 99282; 99283

== ENCOUNTER 2020-03-16 15:31 | Emergency (ER) | payer MEDICAID, MEDICARE, OTHER ==
[2020-03-16] MEDS ORDERED: diazePAM 5 MG/ML MDV IV ONE (15:53)
[2020-03-16] MEDS ORDERED: Orphenadrine 60 MG/2 ML Inj IM ONE (15:54)
[2020-03-16] MEDS ORDERED: Acetaminophen/HYDROcodone 325-5 MG Tab PO ONE (16:55)
--- NOTE | 2020-03-16 17:39 | CR ---
Indication: Left rib pain Technique: PA chest oblique views left ribs Comparison: No comparison Findings: Normal cardiac mediastinal silhouette. Lungs are clear. Oblique views of the left ribs demonstrate no evidence for left rib fracture Dictated by Arabella Nugent MD @ Mar 16 2020 5:37PM Signed by Dr. Arabella Nugent @ Mar 16 2020 5:38PM
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
== END 2020-03-16 18:43 | disposition home or self-care (01) ==
LOC: MW.ED 15:31
DX: R07.81 Pleurodynia (principal); I25.10 Atherosclerotic heart disease of native coronary artery without angina pectoris; E78.00 Pure hypercholesterolemia, unspecified; I25.2 Old myocardial infarction; J45.909 Unspecified asthma, uncomplicated; I12.9 Hypertensive chronic kidney disease with stage 1 through stage 4 chronic kidney disease, or unspecified chronic kidney disease; N18.30 Chronic kidney disease, stage 3 unspecified; M19.90 Unspecified osteoarthritis, unspecified site; E66.9 Obesity, unspecified; Z68.33 Body mass index [BMI] 33.0-33.9, adult; Z88.0 Allergy status to penicillin; Z79.899 Other long term (current) drug therapy; Z79.82 Long term (current) use of aspirin
CPT/HCPCS: 71101; 96372; 96374; 99283; A9270; J2360; J3360

== ENCOUNTER 2020-05-28 19:41 | Inpatient (IN) | payer MEDICARE ==
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
[2020-05-28] MEDS ORDERED: Acetaminophen/HYDROcodone 325-5 MG Tab PO ONE (20:17)
--- NOTE | 2020-05-28 21:13 | CT ---
INDICATION: Left chest pain TECHNIQUE: CT chest without i.v. contrast. Coronal and sagittal reformats were obtained. COMPARISON: None FINDINGS: Cardiovascular: Mild lipomatous hypertrophy of the interatrial septum is present. This is usually a benign finding but can be associated with cardiac arrhythmias. The pulmonary arteries are unremarkable in appearance. No sign of aneurysm seen in the thoracic aorta. The presence of aortic dissection cannot be evaluated without the use of intravenous contrast. Mediastinum: No mass or adenopathy seen. Lung: No pulmonary contusion, laceration or pneumothorax is seen. Faint subpleural ground-glass opacities are present in the posterior left lower lobe. Pleura and pericardium: No sign of pleural effusion seen. No significant pericardial effusion is present. Chest wall and axilla: No mass or adenopathy seen. Bone: Subacute fractures of the left posterior 8th and 9th ribs are present with callus bone formation. Acute appearing fracture of the left posterior 7th and 10th rib fractures are noted. Upper abdomen: Severe atrophy of the left kidney is noted. Mild cortical scarring is seen in the right renal upper pole. IMPRESSIONS: 1. Faint subpleural ground-glass opacities are present in the posterior left lower lobe. Findings may be due to mild pneumonitis but clinical correlation is recommended to exclude an atypical appearance of COVID-19 infection 2. An acute appearing fracture of the left posterior 7th and 10th fractures are noted. Dictated by Momo Singer MD @ 05/28/2020 9:05:44 PM Please note that all CT scans at this facility use dose modulation, iterative reconstruction, and/or weight-based dosing when appropriate to reduce radiation dose to as low as reasonably achievable. Dictated by: Momo Singer MD @ 05/28/2020 21:11:22 (Electronically Signed)
--- NOTE | 2020-05-28 21:21 | CR ---
INDICATION: Wrist injury from fall TECHNIQUE: Wrist radiograph 2 views left COMPARISON: None FINDINGS: Bone: No acute fractures or aggressive bone lesions are identified. Joint: The radiocarpal, carpal, and carpometacarpal joints are unremarkable in appearance. Soft tissue: Unremarkable. No radiopaque foreign bodies are seen. IMPRESSION: 1. No acute osseous injuries or abnormalities are noted. Dictated by: Momo Singer MD @ 05/28/2020 21:21:12 (Electronically Signed)
--- NOTE | 2020-05-28 21:23 | CR ---
INDICATION: Knee injury from fall TECHNIQUE: Knee radiograph 3 views left COMPARISON: None FINDINGS: Bone: No acute fractures or aggressive bone lesions are identified. Joint: Moderate osteoarthritis of the patellofemoral compartment noted. The joint spaces of the medial, lateral compartments are unremarkable. No significant knee effusion is seen. Soft tissue: Unremarkable. No radiopaque foreign bodies are seen. IMPRESSION: 1. No acute osseous injuries or abnormalities are noted. Dictated by: Momo Singer MD @ 05/28/2020 21:21:54 (Electronically Signed)
--- NOTE | 2020-05-28 21:23 | CR ---
INDICATION: Tibia injury from fall TECHNIQUE: Tibia-fibula radiograph 2 views left on 4 films COMPARISON: None FINDINGS: Bone: No acute fractures or aggressive bone lesions are identified. Joint: The visualized knee and ankle joints are unremarkable. No significant joint effusion is seen. Soft tissue: Soft tissue phleboliths are noted in the anterior hickey. No radiopaque foreign bodies are seen. IMPRESSION: 1. No acute osseous injuries or abnormalities are noted. Dictated by: Momo Singer MD @ 05/28/2020 21:22:39 (Electronically Signed)
[2020-05-28 21:51] LABS: BLOOD UREA NITROGEN,BUN 21 mg/dL (7.0-18.0); CARBON DIOXIDE,CO2 26.9 mmol/L (21.0-32.0); CHLORIDE,CL 103 mmol/L (98-107); GLUCOSE RANDOM 105 mg/dL (74-106); POTASSIUM,K 3.5 mmol/L (3.5-5.1); SODIUM,NA 142 mmol/L (136-145)
[2020-05-28] MEDS ORDERED: Albuterol 0.083% 2.5 MG/3 ML Neb Soln NEB ONE (22:54)
[2020-05-28] MEDS ORDERED: Morphine 4 MG/ML Syringe IVPUSH ONE (23:37)
[2020-05-28] MEDS ORDERED: Ondansetron 4 MG/2 ML SDV IVPUSH ONE (23:37)
[2020-05-29] MEDS ORDERED: Acetaminophen 325 MG Tab PO PRN (00:12)
[2020-05-29] MEDS: Morphine 2 MG/ML SYRINGE IVPUSH PRN ×3 (02:07→20:34)
[2020-05-29] MEDS: Ondansetron 4 MG/2 ML SDV IVPUSH PRN ×5 (02:13→20:34)
[2020-05-29] MEDS: Acetaminophen/HYDROcodone 325-5 MG Tab PO PRN (04:09)
[2020-05-29] MEDS: Albuterol 0.083% 2.5 MG/3 ML Neb Soln NEB PRN ×3 (04:10→23:44)
[2020-05-29 06:04] LABS: CARBON DIOXIDE,CO2 26.6 mmol/L (21.0-32.0); POTASSIUM,K 3.5 mmol/L (3.5-5.1)
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
[2020-05-29] MEDS: Lidocaine 5% 700 MG Patch TRDERM SCH (09:59)
[2020-05-29] MEDS: Polyethylene Glycol 3350 Powder 17 GM Packet PO SCH (09:59)
[2020-05-29] MEDS: Pantoprazole 40 MG Tab.CR PO SCH (09:59)
[2020-05-29] MEDS: Metoprolol Tartrate 50 MG Tab PO SCH ×2 (10:00→20:27)
[2020-05-29] MEDS: Cyclobenzaprine 10 MG Tab PO PRN ×2 (10:00→23:44)
[2020-05-29] MEDS: Diltiazem IR 60 MG Tab PO SCH ×2 (10:00→20:26)
[2020-05-29] MEDS: Aspirin 81 MG Tab.Chew PO SCH (10:00)
[2020-05-29] MEDS: Benzonatate 100 MG Cap PO PRN ×2 (11:44→21:05)
[2020-05-29] MEDS: Furosemide 40 MG Tab PO SCH ×2 (11:44→20:27)
[2020-05-29] MEDS: Heparin Sodium 5,000 Units/ML Vial SUBCUT SCH ×2 (15:48→23:43)
[2020-05-29] MEDS ORDERED: Allopurinol 100 MG Tab PO SCH (21:00)
[2020-05-29] MEDS ORDERED: Rosuvastatin 10 MG Tab PO SCH (21:00)
[2020-05-30] MEDS: Acetaminophen/HYDROcodone 325-5 MG Tab PO PRN (03:41)
[2020-05-30] MEDS: Ondansetron 4 MG/2 ML SDV IVPUSH PRN (03:42)
[2020-05-30 05:46] LABS: CARBON DIOXIDE,CO2 25.2 mmol/L (21.0-32.0); POTASSIUM,K 3.9 mmol/L (3.5-5.1)
[2020-05-30] MEDS ORDERED: Furosemide 40 MG Tab PO SCH (08:00)
[2020-05-30] MEDS: Polyethylene Glycol 3350 Powder 17 GM Packet PO SCH (08:25)
[2020-05-30] MEDS: Diltiazem IR 60 MG Tab PO SCH (08:26)
[2020-05-30] MEDS: Metoprolol Tartrate 50 MG Tab PO SCH (08:27)
[2020-05-30] MEDS: Pantoprazole 40 MG Tab.CR PO SCH (08:27)
[2020-05-30] MEDS: Aspirin 81 MG Tab.Chew PO SCH (08:28)
[2020-05-30] MEDS: Heparin Sodium 5,000 Units/ML Vial SUBCUT SCH (08:28)
[2020-05-30] MEDS: Lidocaine 5% 700 MG Patch TRDERM SCH (10:20)
[2020-05-30] MEDS: Albuterol 0.083% 2.5 MG/3 ML Neb Soln NEB PRN (10:51)
[2020-05-30] MEDS: Cyclobenzaprine 10 MG Tab PO PRN (11:47)
--- NOTE | 2020-05-30 14:36 | PCM.DCSUM1 ---
Discharge Summary - Hospital Course Free Text/Narrative:: 69-year-old female admitted for multiple rib fractures. She has a PMH of CHF, asthma, HTN, AK and CKD. Patient was admitted in [place], [place] from to 05/20 for posterior left rib fractures that were caused by a bad coughing spell during an asthma attack. CT chest showed subacute fractures of left 8th and 9th ribs as well as acute appearing fractures of left 7th and 10th ribs. Patient's pain was treated with acetaminophen, norco 325/5 mg, flexeril and lidocaine patch. PT consulted. On day of discharge, patient reported feeling significantly better, pain controlled and tolerating PO diet. Patient discharged with short-term script for norco 325/5 mg prn, Flexeril prn, Tessalon pearls prn, lidocaine patch and zofran prn. Advised to continue using incentive spirometer and take vitamin D. Advised to follow-up with PCP Dr. Szymanski. Recommend outpatient DEXA scan to evaluate for osteoporosis. Resume home health on discharge. - Discharge Data Discharge Date: 05/30/20 Discharge Disposition: Home, Home Health Agency 06 Condition: Stable - Referral to Home Health Date of Face to Face Encounter: 05/30/20 Reason for Homebound Status: Patient has pain that is limiting their ability ot ambulate more than household distance. Patient has weakness and deconditioning due to hospitalization. Primary Care Physician: PCP None Skilled Need: Physical therapy: Strengthening due to weakness from recent hospitalization and deconditioning, gait instability and high fall risk. - Discharge Diagnosis/Problem(s) (1) Multiple rib fractures involving four or more ribs SNOMED Code(s): 7997880 ICD Code: S22.49XA - MULTIPLE FRACTURES OF RIBS, UNSP SIDE, INIT FOR CLOS FX Status: Acute (2) CHF (congestive heart failure) SNOMED Code(s): 10956181 ICD Code: I50.9 - HEART FAILURE, UNSPECIFIED Status: Acute (3) Asthma SNOMED Code(s): 947635794 ICD Code: J45.909 - UNSPECIFIED ASTHMA, UNCOMPLICATED Status: Acute (4) HTN (hypertension) SNOMED Code(s): 72027591 ICD Code: I10 - ESSENTIAL (PRIMARY) HYPERTENSION Status: Acute (5) Myocardial infarct SNOMED Code(s): 67959172 ICD Code: I21.9 - ACUTE MYOCARDIAL INFARCTION, UNSPECIFIED Status: Acute (6) Chronic kidney disease (CKD) SNOMED Code(s): 936551769 ICD Code: N18.9 - CHRONIC KIDNEY DISEASE, UNSPECIFIED Status: Acute - Patient Summary/Data Consults: Consultations 05/29/20 09:44 PT Evaluation and Treatment [CONS] Routine 05/29/20 12:24 Consult to Physician [CONS] Routine - Patient Instructions Diet: Heart Healthy Diet, Low Sodium, Fluid Restriction Activity: As Tolerated, No Strenuous Activities Notify Provider of: Fever, Increased Pain, Swelling and Redness, Drainage, Nausea and/or Vomiting - Discharge Plan *PRESCRIPTION DRUG MONITORING PROGRAM REVIEWED*: Not Applicable *COPY OF PRESCRIPTION DRUG MONITORING REPORT IN PATIENT ARIES: Not Applicable Prescriptions/Med Rec: Cyclobenzaprine [Flexeril] 10 mg PO BID PRN 7 Days #14 tab PRN Reason: Muscle Spasm Lidocaine 5% [Lidoderm 5%] 700 mg TRDERM Q24H 7 Days #7 patch Acetaminophen/HYDROcodone [[place] 325-5 MG] 1 tab PO BEDTIME PRN 7 Days #7 tablet PRN Reason: Pain (Moderate 4-6) Ondansetron [Ondansetron ODT] 4 mg PO Q6H PRN 5 Days #20 tab PRN Reason: Nausea Benzonatate [Tessalon Perle] 100 mg PO TID PRN 7 Days #21 capsule PRN Reason: Cough Home Medications: Home Meds Albuterol Sulfate 1 ampule NEB Q6H 12/09/17 [History] Albuterol [Ventolin HFA] 1 - 2 puff INH Q4HR 12/09/17 [History] Metoprolol Tartrate 50 mg PO BID 12/09/17 [History] Nitroglycerin 1 tab SL ASDIRECTED PRN 12/09/17 [History] Potassium Chloride [Klor-Con 10] 10 meq PO BID 12/09/17 [History] Rosuvastatin Calcium 20 mg PO BEDTIME 12/09/17 [History] dilTIAZem HCL [Cardizem] 60 mg PO BID 12/09/17 [History] allopurinoL [Zyloprim] 100 mg PO BEDTIME 11/20/18 [History] Aspirin 81 mg PO DAILY 02/19/19 [History] polyethylene glycoL 3350 [MiraLAX] 17 gm PO DAILY PRN 05/29/20 [History] Acetaminophen/HYDROcodone [[place] 325-5 MG] 1 tab PO BEDTIME PRN 7 Days #7 tablet 05/30/20 [Rx] Benzonatate [Tessalon Perle] 100 mg PO TID PRN 7 Days #21 capsule 05/30/20 [Rx] Cyclobenzaprine [Flexeril] 10 mg PO BID PRN 7 Days #14 tab 05/30/20 [Rx] Furosemide 40 mg PO BID #0 05/30/20 [Rx] Lidocaine 5% [Lidoderm 5%] 700 mg TRDERM Q24H 7 Days #7 patch 05/30/20 [Rx] Ondansetron [Ondansetron ODT] 4 mg PO Q6H PRN 5 Days #20 tab 05/30/20 [Rx] Pantoprazole [ProTONIX] 40 mg PO DAILY 05/30/20 [History] Oxygen Therapy Mode: Room Air Patient Handouts: Acetaminophen; Hydrocodone tablets or capsules, Cyclobenzaprine tablets, Ondansetron tablets, Lidocaine dermal patch, Rib Fracture, [id number], Benzonatate capsules Referrals: Woodrow Szymanski MD [Ordering Only Provider] - 06/04/20 12:30 pm - Discharge Summary/Plan Comment DC Time >30 min.: No - Patient Data Vitals - Most Recent: Last Vital Signs Temp 36.1 C 05/30/20 11:32 Pulse 69 05/30/20 11:32 Resp 18 05/30/20 11:32 BP 134/66 05/30/20 11:32 Pulse Ox 95 05/30/20 11:32 Weight - Most Recent: 119.748 kg I&O - Last 24 hours: Intake & Output 05/29/20 05/30/20 05/30/20 22:59 06:59 14:59 Intake Total 1136 650 Output Total 800 475 Balance 336 175 Lab Results - Last 24 hrs: Laboratory Results - last 24 hr 05/30/20 05/30/20 Range/Units 04:52 04:52 WBC 12.19 H (4.0-11.0) K/uL RBC 4.45 (4.30-5.90) M/uL Hgb 11.7 L (12.0-16.0) g/dL Hct 37.9 (36.0-46.0) % MCV 85.2 (80.0-98.0) fL MCH 26.3 L (27.0-32.0) pg MCHC 30.9 L (31.0-37.0) g/dL RDW Std Deviation 53.8 (28.0-62.0) fl RDW Coeff of Zuly 17 H (11.0-15.0) % Plt Count 341 (150-400) K/uL MPV 9.20 (7.40-12.00) fL Neut % (Auto) 77.7 (48.0-80.0) % Lymph % (Auto) 11.2 L (16.0-40.0) % [facility] % (Auto) 8.6 (0.0-15.0) % Eos % (Auto) 2.3 (0.0-7.0) % Baso % (Auto) 0.2 (0.0-1.5) % Neut # (Auto) 9.5 H (1.4-5.7) K/uL Lymph # (Auto) 1.4 (0.6-2.4) K/uL [facility] # (Auto) 1.1 H (0.0-0.8) K/uL Eos # (Auto) 0.3 (0.0-0.7) K/uL Baso # (Auto) 0.0 (0.0-0.1) K/uL Nucleated RBC % 0.2 /100WBC Nucleated RBCs # 0 K/uL Sodium 138 (136-145) mmol/L Potassium 3.9 (3.5-5.1) mmol/L Chloride 100 (98-107) mmol/L Carbon Dioxide 25.2 (21.0-32.0) mmol/L BUN 27 H (7.0-18.0) mg/dL Creatinine 2.6 H (0.6-1.0) mg/dL Est Cr Clr Drug Dosing 21.26 mL/min Estimated GFR (MDRD) 18.4 ml/min Glucose 101 (74-106) mg/dL Calcium 8.9 (8.5-10.1) mg/dL Total Bilirubin 0.5 (0.2-1.0) mg/dL AST 17 (15-37) IU/L ALT 22 (14-63) IU/L Alkaline Phosphatase 89 (46-116) U/L Total Protein 6.8 (6.4-8.2) g/dL Albumin 3.3 L (3.4-5.0) g/dL Globulin 3.5 (2.6-4.0) g/dL Albumin/Globulin Ratio 0.9 (0.9-1.6) Med Orders - Current: Current Medications Discontinued Medications Acetaminophen (Tylenol) 650 mg PO Q4H PRN PRN Reason: Pain (Mild 1-3)/fever Hydrocodone Bitart/Acetaminophen ([place] 325-5 Mg) 1 tab PO ONETIME ONE Stop: 05/28/20 20:18 Last Admin: 05/28/20 21:11 Dose: 1 tab Documented by: Hydrocodone Bitart/Acetaminophen ([place] 325-5 Mg) 1 tab PO Q4H PRN PRN Reason: Pain (moderate 4-6) Last Admin: 05/30/20 03:41 Dose: 1 tab Documented by: Albuterol (Proventil Neb Soln) 2.5 mg NEB ONETIME ONE Stop: 05/28/20 22:55 Last Admin: 05/28/20 23:00 Dose: 2.5 mg Documented by: Albuterol (Proventil Neb Soln) 2.5 mg NEB Q4H PRN PRN Reason: Shortness Of Breath/wheezing Last Admin: 05/30/20 10:51 Dose: 2.5 mg Documented by: Allopurinol (Zyloprim) 100 mg PO BEDTIME [facility] Last Admin: 05/29/20 20:26 Dose: 100 mg Documented by: Aspirin (Aspirin) 81 mg PO DAILY [facility] Last Admin: 05/30/20 08:28 Dose: 81 mg Documented by: Benzonatate (Tessalon Perles) 100 mg PO TID PRN PRN Reason: Cough Last Admin: 05/29/20 21:05 Dose: 100 mg Documented by: Cyclobenzaprine HCl (Flexeril) 10 mg PO BID PRN PRN Reason: Muscle Spasm Last Admin: 05/30/20 11:47 Dose: 10 mg Documented by: Diltiazem HCl (Cardizem) 60 mg PO BID [facility] Last Admin: 05/30/20 08:26 Dose: 60 mg Documented by: Furosemide (Lasix) 40 mg PO BID [facility] Last Admin: 05/29/20 20:27 Dose: 40 mg Documented by: Furosemide (Lasix) 40 mg PO BID@0700,1700 [facility] Last Admin: 05/30/20 08:27 Dose: 40 mg Documented by: Heparin Sodium (Porcine) (Heparin Sodium) 5,000 units SUBCUT Q8H [facility] Last Admin: 05/30/20 08:28 Dose: 5,000 units Documented by: Lidocaine (Lidoderm 5%) 700 mg TRDERM Q24H [facility] Last Admin: 05/30/20 10:20 Dose: 700 mg Documented by: Metoprolol Tartrate (Lopressor) 50 mg PO BID [facility] Last Admin: 05/30/20 08:27 Dose: 50 mg Documented by: Morphine Sulfate (Morphine) 4 mg IVPUSH ONETIME ONE Stop: 05/28/20 23:38 Last Admin: 05/28/20 23:58 Dose: 4 mg Documented by: Morphine Sulfate (Morphine) 2 mg IVPUSH Q2H PRN PRN Reason: Pain (severe 7-10) Stop: 05/30/20 00:13 Last Admin: 05/29/20 20:34 Dose: 2 mg Documented by: Ondansetron HCl (Zofran) 4 mg IVPUSH ONETIME ONE Stop: 05/28/20 23:38 Last Admin: 05/28/20 23:58 Dose: 4 mg Documented by: Ondansetron HCl (Zofran) 4 mg IVPUSH Q4H PRN PRN Reason: Nausea Last Admin: 05/30/20 03:42 Dose: 4 mg Documented by: Pantoprazole Sodium (Protonix) 40 mg PO ACBREAKFAST [facility] Last Admin: 05/30/20 08:27 Dose: 40 mg Documented by: Polyethylene Glycol (Miralax) 17 gm PO DAILY [facility] Last Admin: 05/30/20 08:25 Dose: 17 gm Documented by: Rosuvastatin Calcium (Crestor) 20 mg PO BEDTIME [facility] Last Admin: 05/29/20 20:25 Dose: 20 mg Documented by:
== END 2020-05-30 13:13 | disposition home health service (06) | DRG 183 ==
LOC: MW.ED 19:41 → MW.MS 23:45 → UNDOADMOB 05-29 00:02 → MW.MS 05-29 00:02 → OBSVTOIN 05-29 09:54
PROVIDERS: ADMIT Internal Medicine; ATTEND Internal Medicine
DX: S22.42XA Multiple fractures of ribs, left side, initial encounter for closed fracture (principal); I21.9 Acute myocardial infarction, unspecified; I13.0 Hypertensive heart and chronic kidney disease with heart failure and stage 1 through stage 4 chronic kidney disease, or unspecified chronic kidney disease; Z68.41 Body mass index [BMI] 40.0-44.9, adult; I50.9 Heart failure, unspecified; J45.909 Unspecified asthma, uncomplicated; H54.7 Unspecified visual loss; I25.10 Atherosclerotic heart disease of native coronary artery without angina pectoris; I13.10 Hypertensive heart and chronic kidney disease without heart failure, with stage 1 through stage 4 chronic kidney disease, or unspecified chronic kidney disease; E78.00 Pure hypercholesterolemia, unspecified; K21.9 Gastro-esophageal reflux disease without esophagitis; N18.30 Chronic kidney disease, stage 3 unspecified; M19.90 Unspecified osteoarthritis, unspecified site; Z20.822 Contact with and (suspected) exposure to COVID-19; M54.9 Dorsalgia, unspecified; M10.9 Gout, unspecified; F32.9 Major depressive disorder, single episode, unspecified; E66.9 Obesity, unspecified; E55.9 Vitamin D deficiency, unspecified; D63.1 Anemia in chronic kidney disease; F43.10 Post-traumatic stress disorder, unspecified; G89.29 Other chronic pain; M79.7 Fibromyalgia; Z88.0 Allergy status to penicillin; Z91.09 Other allergy status, other than to drugs and biological substances; Z79.899 Other long term (current) drug therapy; Z90.49 Acquired absence of other specified parts of digestive tract; Z90.710 Acquired absence of both cervix and uterus; Z87.891 Personal history of nicotine dependence; Z79.82 Long term (current) use of aspirin; Z91.81 History of falling; W19.XXXA Unspecified fall, initial encounter
CPT/HCPCS: 36415 ×2; 71250; 73100; 73562; 73590; 80048; 80053; 84484; 85025 ×2; 93005; A9270 ×2; J2270 ×3; J2405 ×3; U0002; 93010; 94640; 99284; 99285-25; J1644

== ENCOUNTER 2022-10-21 10:39 | Emergency (ER) | payer MEDICARE ==
[2022-10-21 10:56] LABS: BASOPHILS PERCENT AUTO 0.4 % (0.0-1.5); EOSINOPHILS ABSOLUTE AUTO 0.1 K/uL (0.0-0.7); EOSINOPHILS PERCENT AUTO 1.8 % (0.0-7.0); HEMATOCRIT 37.5 % (36.0-46.0); HEMOGLOBIN 11.2 g/dL (12.0-16.0); LYMPHOCYTES ABSOLUTE AUTO 1.2 K/uL (0.6-2.4); LYMPHOCYTES PERCENT AUTO 14.9 % (16.0-40.0); MEAN CORPUSCULAR HEMOGLOBIN 24.3 pg (27.0-32.0); MEAN CORPUSCULAR HGB CONC 29.9 g/dL (31.0-37.0); MEAN CORPUSCULAR VOLUME 81.3 fL (80.0-98.0); MONOCYTES ABSOLUTE AUTO 0.4 K/uL (0.0-0.8); MONOCYTES PERCENT AUTO 4.7 % (0.0-15.0); NEUTROPHILS ABSOLUTE AUTO 6.1 K/uL (1.4-5.7); NEUTROPHILS PERCENT AUTO 78.2 % (48.0-80.0); NRBC ABSOLUTE 0 K/uL; PLATELET COUNT,PLT 276 K/uL (150-400); RED BLOOD CELL COUNT 4.61 M/uL (4.30-5.90); WHITE BLOOD CELL COUNT,WBC 7.84 K/uL (4.0-11.0)
[2022-10-21 11:14] LABS: INR 1.07 (0.86-1.11); PTT,PARTIAL THROMBOPLSTIN TIME 27.9 SEC (23.9-30.7)
[2022-10-21] MEDS ORDERED: Morphine 4 MG/ML Syringe IVPUSH ONE (11:17)
[2022-10-21 11:28] LABS: A/G RATIO 0.9 (0.9-1.6); ALBUMIN 3.6 g/dL (3.4-5.0); BILIRUBIN TOTAL 0.4 mg/dL (0.2-1.0); CALCIUM 9.4 mg/dL (8.5-10.1); CARBON DIOXIDE,CO2 26.7 mmol/L (21.0-32.0); CREATININE 1.7 mg/dL (0.6-1.0); EST CRCL DRUG DOSING (CG) 31.51 mL/min; MAGNESIUM 2.3 mg/dL (1.8-2.4); POTASSIUM,K 4.5 mmol/L (3.5-5.1); PROTEIN TOTAL,TP 7.6 g/dL (6.4-8.2)
[2022-10-21] MEDS ORDERED: Albuterol/Ipratropium 3.0-0.5 MG/3 ML Neb Soln NEB ONE (12:42)
[2022-10-21] MEDS ORDERED: Albuterol 0.083% 2.5 MG/3 ML Neb Soln NEB ONE (12:44)
== END 2022-10-21 14:07 | disposition home or self-care (01) ==
LOC: MW.ED 10:39
DX: J45.909 Unspecified asthma, uncomplicated (principal); I25.10 Atherosclerotic heart disease of native coronary artery without angina pectoris; I13.0 Hypertensive heart and chronic kidney disease with heart failure and stage 1 through stage 4 chronic kidney disease, or unspecified chronic kidney disease; I12.9 Hypertensive chronic kidney disease with stage 1 through stage 4 chronic kidney disease, or unspecified chronic kidney disease; I50.9 Heart failure, unspecified; N18.30 Chronic kidney disease, stage 3 unspecified; E78.00 Pure hypercholesterolemia, unspecified; I25.2 Old myocardial infarction; K21.9 Gastro-esophageal reflux disease without esophagitis; M19.90 Unspecified osteoarthritis, unspecified site; Z79.82 Long term (current) use of aspirin; Z79.899 Other long term (current) drug therapy; Z79.51 Long term (current) use of inhaled steroids; Z88.0 Allergy status to penicillin; Z91.09 Other allergy status, other than to drugs and biological substances
CPT/HCPCS: 36415; 71045; 80053; 83735; 83880; 84484; 85025; 85610; 85730; 93005; 96374; 99285; J2270; 93010; 99284; J7620-GY

== ENCOUNTER 2023-05-12 09:04 | Emergency (ER) | payer MEDICARE ==
[2023-05-12] MEDS ORDERED: methylPREDNISolone Sodium Succinate 125 MG/2 ML SDV IVPUSH ONE (09:21)
[2023-05-12] MEDS ORDERED: Albuterol/Ipratropium 3.0-0.5 MG/3 ML Neb Soln NEB ONE (09:44)
[2023-05-12 09:55] LABS: BASE EXCESS VENOUS 2.6 (-2.0-3.0); BASOPHILS ABSOLUTE AUTO 0.04 K/uL (0.00-0.20); BASOPHILS PERCENT AUTO 0.4 % (0.0-1.0); EOSINOPHILS ABSOLUTE AUTO 0.09 K/uL (0.00-0.45); EOSINOPHILS PERCENT AUTO 0.9 % (0.0-6.0); HEMATOCRIT 36.4 % (37.0-47.0); HEMOGLOBIN 11.2 g/dL (12.0-16.0); IMMATURE GRAN ABSOLUTE AUTO 0.02 K/uL (0.00-0.05); IMMATURE GRAN PERCENT AUTO 0.2 % (0.0-0.4); LYMPHOCYTES ABSOLUTE AUTO 1.06 K/uL (1.00-4.80); LYMPHOCYTES PERCENT AUTO 10.4 % (24.0-44.0); MEAN CORPUSCULAR HEMOGLOBIN 25.1 pg (28.0-32.0); MEAN CORPUSCULAR HGB CONC 30.8 g/dL (32.0-36.0); MEAN CORPUSCULAR VOLUME 81.4 fL (83.0-99.0); MEAN PLATELET VOLUME 8.7 fL (9.4-12.3); MONOCYTES ABSOLUTE AUTO 0.34 K/uL (0.00-0.80); MONOCYTES PERCENT AUTO 3.3 % (0.0-8.0); NEUTROPHILS ABSOLUTE AUTO 8.61 K/uL (1.80-7.70); NEUTROPHILS PERCENT AUTO 84.8 % (41.0-71.0); PH,VENOUS 7.43 (7.31-7.41); PLATELET COUNT,PLT 281 K/uL (150-400); RED BLOOD CELL COUNT 4.47 M/uL (4.10-5.30); WHITE BLOOD CELL COUNT,WBC 10.16 K/uL (3.9-11.3)
[2023-05-12 10:32] LABS: A/G RATIO 0.8 (0.9-1.6); ALBUMIN 3.3 g/dL (3.4-5.0); BILIRUBIN TOTAL 0.4 mg/dL (0.2-1.0); CARBON DIOXIDE,CO2 25.5 mmol/L (21.0-32.0); CREATININE 1.8 mg/dL (0.6-1.0); EST CRCL DRUG DOSING (CG) 30.39 mL/min; POTASSIUM,K 3.9 mmol/L (3.5-5.1); PROTEIN TOTAL,TP 7.5 g/dL (6.4-8.2)
[2023-05-12 10:34] LABS: CORONAVIRUS COVID-19 NAA NEGATIVE (NEGATIVE); INFLUENZA A NAA NEGATIVE (NEGATIVE); INFLUENZA B NAA NEGATIVE (NEGATIVE); RESPIRATORY SYNCYTIAL VIR NAA NEGATIVE (NEGATIVE)
== END 2023-05-12 11:14 | disposition home or self-care (01) ==
LOC: MW.ED 09:04
DX: J45.901 Unspecified asthma with (acute) exacerbation (principal); I13.0 Hypertensive heart and chronic kidney disease with heart failure and stage 1 through stage 4 chronic kidney disease, or unspecified chronic kidney disease; I50.9 Heart failure, unspecified; N18.9 Chronic kidney disease, unspecified; I25.2 Old myocardial infarction; K21.9 Gastro-esophageal reflux disease without esophagitis; M10.9 Gout, unspecified; E66.9 Obesity, unspecified; Z68.38 Body mass index [BMI] 38.0-38.9, adult; Z79.82 Long term (current) use of aspirin; Z79.899 Other long term (current) drug therapy; Z88.0 Allergy status to penicillin; Z88.5 Allergy status to narcotic agent; Z91.048 Other nonmedicinal substance allergy status
CPT/HCPCS: 0241U; 36415; 71045; 80053; 82803; 83735; 83880; 84484; 85025; 93005; 96374; 99285; J2930; 93010; 99284; J7620-GY

== ENCOUNTER 2023-10-22 07:46 | Emergency (ER) | payer MEDICARE ==
[2023-10-22] MEDS ORDERED: Sodium Chloride 0.9% 2.5 ML Syringe FLUSH PRN (08:03)
[2023-10-22] MEDS ORDERED: Sodium Chloride 0.9% 10 ML Syringe FLUSH PRN (08:03)
[2023-10-22] MEDS: Albuterol/Ipratropium 3.0-0.5 MG/3 ML Neb Soln NEB ONE (08:59)
[2023-10-22 09:08] LABS: BASOPHILS ABSOLUTE AUTO 0.06 K/uL (0.00-0.20); BASOPHILS PERCENT AUTO 0.4 % (0.0-1.0); EOSINOPHILS ABSOLUTE AUTO 0.25 K/uL (0.00-0.45); EOSINOPHILS PERCENT AUTO 1.8 % (0.0-6.0); HEMATOCRIT 36.8 % (37.0-47.0); HEMOGLOBIN 11.2 g/dL (12.0-16.0); IMMATURE GRAN ABSOLUTE AUTO 0.06 K/uL (0.00-0.05); IMMATURE GRAN PERCENT AUTO 0.4 % (0.0-0.4); LYMPHOCYTES ABSOLUTE AUTO 1.21 K/uL (1.00-4.80); LYMPHOCYTES PERCENT AUTO 8.9 % (24.0-44.0); MEAN CORPUSCULAR HEMOGLOBIN 25.1 pg (28.0-32.0); MEAN CORPUSCULAR HGB CONC 30.4 g/dL (32.0-36.0); MEAN CORPUSCULAR VOLUME 82.3 fL (83.0-99.0); MEAN PLATELET VOLUME 8.9 fL (9.4-12.3); MONOCYTES ABSOLUTE AUTO 0.56 K/uL (0.00-0.80); MONOCYTES PERCENT AUTO 4.1 % (0.0-8.0); NEUTROPHILS PERCENT AUTO 84.4 % (41.0-71.0); PLATELET COUNT,PLT 324 K/uL (150-400); RED BLOOD CELL COUNT 4.47 M/uL (4.10-5.30); WHITE BLOOD CELL COUNT,WBC 13.64 K/uL (3.9-11.3)
[2023-10-22 09:31] LABS: A/G RATIO 0.9 (0.9-1.6); ALBUMIN 3.4 g/dL (3.4-5.0); BILIRUBIN TOTAL 0.4 mg/dL (0.2-1.0); CARBON DIOXIDE,CO2 25.5 mmol/L (21.0-32.0); EST CRCL DRUG DOSING (CG) 26.4 mL/min; MAGNESIUM 1.9 mg/dL (1.8-2.4); POTASSIUM,K 3.6 mmol/L (3.5-5.1); PROTEIN TOTAL,TP 7.3 g/dL (6.4-8.2)
[2023-10-22 09:44] LABS: CORONAVIRUS COVID-19 NAA NEGATIVE (NEGATIVE); INFLUENZA A NAA NEGATIVE (NEGATIVE); INFLUENZA B NAA NEGATIVE (NEGATIVE); RESPIRATORY SYNCYTIAL VIR NAA NEGATIVE (NEGATIVE)
== END 2023-10-22 10:22 | disposition home or self-care (01) ==
LOC: MW.ED 07:46
DX: J44.1 Chronic obstructive pulmonary disease with (acute) exacerbation (principal); I10 Essential (primary) hypertension; J45.909 Unspecified asthma, uncomplicated; K21.9 Gastro-esophageal reflux disease without esophagitis; N18.9 Chronic kidney disease, unspecified; E66.9 Obesity, unspecified; Z68.39 Body mass index [BMI] 39.0-39.9, adult; Z90.49 Acquired absence of other specified parts of digestive tract; Z90.710 Acquired absence of both cervix and uterus; Z79.899 Other long term (current) drug therapy; Z79.82 Long term (current) use of aspirin; Z88.0 Allergy status to penicillin; Z88.5 Allergy status to narcotic agent; Z91.048 Other nonmedicinal substance allergy status
CPT/HCPCS: 0241U; 36415; 71045; 80053; 83735; 84484; 85025; 99285; 93005; 93010; 99283; J7620-GY

== ENCOUNTER 2024-08-02 08:53 | Emergency (ER) | payer MEDICARE ==
[2024-08-02] MEDS ORDERED: Sodium Chloride 0.9% 2.5 ML Syringe FLUSH PRN (09:10)
[2024-08-02] MEDS ORDERED: Sodium Chloride 0.9% 10 ML Syringe FLUSH PRN (09:10)
[2024-08-02 09:17] LABS: BASOPHILS ABSOLUTE AUTO 0.03 K/uL (0.00-0.20); BASOPHILS PERCENT AUTO 0.3 % (0.0-1.0); EOSINOPHILS ABSOLUTE AUTO 0.01 K/uL (0.00-0.45); EOSINOPHILS PERCENT AUTO 0.1 % (0.0-6.0); HEMOGLOBIN 11.4 g/dL (12.0-16.0); IMMATURE GRAN ABSOLUTE AUTO 0.05 K/uL (0.00-0.05); IMMATURE GRAN PERCENT AUTO 0.6 % (0.0-0.4); LYMPHOCYTES ABSOLUTE AUTO 0.47 K/uL (1.00-4.80); LYMPHOCYTES PERCENT AUTO 5.4 % (24.0-44.0); MEAN CORPUSCULAR HEMOGLOBIN 25.3 pg (28.0-32.0); MEAN CORPUSCULAR VOLUME 84.3 fL (83.0-99.0); MEAN PLATELET VOLUME 8.7 fL (9.4-12.3); MONOCYTES ABSOLUTE AUTO 0.27 K/uL (0.00-0.80); MONOCYTES PERCENT AUTO 3.1 % (0.0-8.0); NEUTROPHILS PERCENT AUTO 90.5 % (41.0-71.0); PLATELET COUNT,PLT 276 K/uL (150-400); RED BLOOD CELL COUNT 4.51 M/uL (4.10-5.30); WHITE BLOOD CELL COUNT,WBC 8.63 K/uL (3.9-11.3)
[2024-08-02 09:25] LABS: INR 1.06 (0.86-1.11)
[2024-08-02 09:41] LABS: A/G RATIO 0.9 (0.9-1.6); ALBUMIN 3.3 g/dL (3.4-5.0); BILIRUBIN TOTAL 0.4 mg/dL (0.2-1.0); CALCIUM 9.5 mg/dL (8.5-10.1); CARBON DIOXIDE,CO2 27.6 mmol/L (21.0-32.0); CREATININE 1.8 mg/dL (0.6-1.0); EST CRCL DRUG DOSING (CG) 28.92 mL/min; POTASSIUM,K 4.7 mmol/L (3.5-5.1); PROTEIN TOTAL,TP 7.1 g/dL (6.4-8.2)
[2024-08-02] MEDS: Albuterol/Ipratropium 3.0-0.5 MG/3 ML Neb Soln NEB ONE (09:50)
== END 2024-08-02 12:21 | disposition home or self-care (01) ==
LOC: MW.ED 08:53
DX: J44.1 Chronic obstructive pulmonary disease with (acute) exacerbation (principal); I10 Essential (primary) hypertension; K21.9 Gastro-esophageal reflux disease without esophagitis; E66.9 Obesity, unspecified; Z79.82 Long term (current) use of aspirin; Z79.899 Other long term (current) drug therapy; Z90.49 Acquired absence of other specified parts of digestive tract; Z90.710 Acquired absence of both cervix and uterus; Z87.891 Personal history of nicotine dependence
CPT/HCPCS: 36415; 71045; 80053; 83690; 83880; 84484; 85025; 85610; 87428; 93005; 94640; 99285; A9270; 93010; 99283